=== PATIENT | female | born 1980 | race Asian ===

== ENCOUNTER → 2020-01-20 | Outpatient (CLI) | payer OTHER ==
[~2020-01-20] MED LIST: CIPRO500 MG PO; PYRIDIUM200 M1 PO; SPRINTEC 35 MCG1 TAB PO
== END ==
LOC: COL.RAD 07:30
DX: R10.11 Right upper quadrant pain (principal)

== ENCOUNTER → 2020-09-07 | Outpatient (CLI) | payer OTHER ==
[2020-09-07 15:43] LABS: ALBUMIN 4.6 gm/dL (3.5-5.0); BASO # 0.1 (0.0-0.2); BASO % 0.5 % (0.0-2.0); BILIRUBIN,TOTAL 0.3 mg/dL (0.0-1.0); CALCIUM 9.8 mg/dL (8.4-10.2); CREATININE, serum 0.56 (0.52-1.25); EOS # 0.8 (0.0-0.7); EOS % 7.5 % (0-4.0); GRAN # 6.5 (1.4-6.5); GRAN % 59.4 % (42.2-75.2); HEMOGLOBIN 12.1 g/dl (12.5-16.0); LYMPH # 2.7 (1.2-3.4); LYMPH % 24.8 % (20.0-51.0); MEAN CELL VOLUME 90 fl (80.0-100.0); MEAN CORPUSCULAR HEMOGLOBIN 30 pg (27.0-31.0); MEAN CORPUSCULAR HGB CONC 34 g/dl (33.0-37.0); MEAN PLATELET VOLUME 9.3 fl (7.4-10.4); MONO # 0.8 (0.1-0.6); MONO % 7.5 % (1.7-9.3); PLATELET COUNT 261 K/mm3 (130-400); POTASSIUM 3.8 mmol/L (3.4-5.0); RED BLOOD COUNT 4.02 M/mm3 (4.10-5.30); REDCELL DISTRIBUTION WIDTH-CV 12.9 % (11.5-14.5); TOTAL PROTEIN 8.7 gm/dL (6.4-8.2)
[2020-09-07 15:43] LABS: PROTHROMBIN TIME 11.2 SECONDS (9.7-12.8)
[2020-09-07 15:50] LABS: HEMATOCRIT 36.1 % (37.0-47.0)
[2020-09-07 21:39] LABS: HEPATITIS B SURFACE ANTIBODY <2.0 (())
== END ==
LOC: COL.LAB 14:08
PROVIDERS: Student in an Organized Health Care Education/Training Program
DX: O98.419 Viral hepatitis complicating pregnancy, unspecified trimester (principal); Z3A.00 Weeks of gestation of pregnancy not specified

== ENCOUNTER → 2020-09-14 | Outpatient (CLI) | payer OTHER | LOC: COL.RAD 10:13 | DX: O98.419 Viral hepatitis complicating pregnancy, unspecified trimester (principal) ==

== ENCOUNTER 2020-12-03 15:58 | Outpatient (CLI) | payer OTHER ==
[2020-12-21 07:52] LABS: HEPATITIS B CORE AB,TOTAL POSITIVE; HEPATITIS B IU 785; HEPATITIS B LOG IU 2.89
== END 2021-01-21 12:25 | disposition home or self-care (01) ==
LOC: COL.LAB 15:58
PROVIDERS: Student in an Organized Health Care Education/Training Program
DX: B19.10 Unspecified viral hepatitis B without hepatic coma (principal)

== ENCOUNTER → 2021-01-21 | Outpatient (CLI) | payer OTHER ==
[~2021-01-21] VITALS: Ht 152.4 cm; Wt 56.4 kg
[~2021-01-21] MED LIST changes: +IBU800 M1 PO; +PRENATAL TABLET PO
[2021-01-21 11:10] VITALS: BP 94/52; PULSE 87; TEMP 98.1
--- NOTE | 2021-01-21 11:29 | NUR ---
1110 PATIENT HERE FROM OFFICE FOR LABOR MONITORING. ASSESSMENT COMPLETED. VS WNL. EFM ON FHT 120 AND BABY IS VERY ACTIVE. NO CONTRACTIONS ON MONITOR OR FELT BY PATIENT.
[2021-01-21 12:16] VITALS: PULSE 86
--- NOTE | 2021-01-21 12:17 | NUR ---
1200 PATIENT STATES "I HAD A SPOT DOWN THERE A COUPLE WEEKS AGO, I THINK IT MAY BE HERPES BUT MY SAYS ITS A INGROWN HAIR." NO LESIONS OR SPOTS NOTED WITH SVE. SVE /3 DR GAVIRIA CALLED AND UPDATEED ON ALL ABOVE INFORMATION. ORDERS TO DISMISS PATIENT TO HOME. ALL DISCHARGE INSTRUCTION GIVENT O PATIENT WITH VERBAL UNDERSTANDING NOTED. DENIES NEEDS.
== END | disposition still patient (30) ==
LOC: LDRO 00:21
DX: Z34.93 Encounter for supervision of normal pregnancy, unspecified, third trimester (principal); Z3A.34 34 weeks gestation of pregnancy

== ENCOUNTER 2021-02-05 12:46 | Inpatient (IN) | payer OTHER ==
[2021-02-05] VITALS (36 sets, daily range): BP systolic 89–137; BP diastolic 52–71; PULSE 73–110; TEMP 97.3–98.4
[~2021-02-05] VITALS: Ht 152.4 cm; Wt 57.7 kg
[~2021-02-05 12:46] MED LIST changes: -IBU800 M1 PO; -PRENATAL TABLET PO
[2021-02-05] MEDS ORDERED: PRENATAL TABLET PO (13:07)
--- NOTE | 2021-02-05 15:01 | NUR ---
ADMIT NOTE: PT. AMBULATORY TO UNIT AND WAS TAKEN TO LDR4 WITH A L&D NURSE. PT. COMPLAINING OF SROM AROUND 1140 THIS MORNING. PT. CHANGED INTO GOWN AND RESTING ON BED. THIS RN TOOK OVER CARE OF PT. VITAL SIGNS WNL, AMNITRACE +, TOCO/EFM APPLIED AND MODERATE VARIABILITY NOTED BUT NO ACCELS OR DECELS NOTED. CTX NOTED ~10MIN. ASSESSMENTS COMPLETED. DR. GAVIRIA CALLED ABOUT POC. ONCE DECIDED TO DELIVER HERE DUE TO LPT INFANT,CONSENTS WERE SIGNED, IV WAS STARTED AND FLUIDS, PEN G, AND PITOCIN ALL STARTED. PT. STABLE AND HAS NO QUESTIONS. WILL CONTINUE TO MONITOR PT.
[2021-02-05 15:42] LABS: HEMOGLOBIN 12.2 g/dl (12.5-16.0); MEAN CELL VOLUME 93 fl (80.0-100.0); MEAN CORPUSCULAR HEMOGLOBIN 31 pg (27.0-31.0); MEAN CORPUSCULAR HGB CONC 34 g/dl (33.0-37.0); MEAN PLATELET VOLUME 10.1 fl (7.4-10.4); PLATELET COUNT 244 K/mm3 (130-400); RED BLOOD COUNT 3.91 M/mm3 (4.10-5.30); REDCELL DISTRIBUTION WIDTH-CV 13.1 % (11.5-14.5)
[2021-02-05 15:43] LABS: HEMATOCRIT 36.3 % (37.0-47.0)
[2021-02-05 16:29] LABS: EOSINOPHIL 14 % (0-4); LYMPHOCYTE 28 % (20.0-51.0); NEUTROPHILS 49 % (42.0-75.2)
[2021-02-05 16:31] LABS: PLATELET ESTIMATE NORMAL (NORMAL)
--- NOTE | 2021-02-05 17:07 | NUR ---
EPIDURAL NOTE: AMAN GRULLON CALLED FOR EPIDURAL PLACEMENT. 1640: AMAN GRULLON AT FOR PLACEMENT 1642: TO COMPLETED PT. INSTRUCTED ON HOW TO SIT DURING PLACEMENT 1645: SINGLE SHOT PT. TOLERATED PROCEDURE WELL. NO COMPLAINTS WILL CONTINUE TO MONITOR PT.
--- NOTE | 2021-02-05 18:27 | NUR ---
RELINQUISHED CARE OF STABLE, UNDELIVERED PT. AT THIS TIME TO ESTUARDO [facility].
--- NOTE | 2021-02-05 22:20 | NUR ---
2220: AT BEDSIDE, PT REQUESTING ASSISTANCE AFTER 2+ HOURS OF PUSHING. EDUCATES ON USE OF VACUUM EXTRACTION AND PT AGREEABLE TO PLAN OF CARE. PT AND PREPARING FOR DELIVERY. 2245: DELIVERY OF VIABLE MALE PER . MONA JONES RN ASSUMES CARE OF PREMATURE AND INFANT IS PLACED ON WARMER. 2247: SPONTANEOUS DELIVERY OF PLACENTA. BEGINS REPAIR OF 2ND DEGREE LACERATION. PITOCIN STARTED AT 333ML/HR PER PROTOCOL. VITAL SINGS REMAIN STABLE THROUGHOUT DELIVERY. MODERATE CLOT WITH FIRST FUNDAL RUB BY . LOCHIA WNL FOLLOWING THIS EPISODE. WILL CONTINUE WITH FUNDAL CHECKS AND RECOVERY PER PROTOCOL.
[2021-02-06] VITALS (9 sets, daily range): BP systolic 100–122; BP diastolic 50–64; PULSE 66–91; TEMP 97.6–98.3
--- NOTE | 2021-02-06 02:19 | NUR ---
PT REPORTS FEELING FULL SENSATION AND STRENGTH BACK IN BLE, ASSISTED TO SIDE OF BED AND ALLOWED FEET TO DANGLE. AMBULATORY TO RESTROOM WITH STRONG STEADY GAIT. LOCHIA WNL, NO CLOTS. PERICARE PROVIDED, CLEAN GOWN AND UNDERWEAR/PAD ON. PAIN CONTROLLED AT THIS TIME. PT ASSISTED TO ROOM #219 WITH FOB. BABY REMAINS IN NURSERY AT THIS TIME. ORIENTED TO NEW ROOM AND POC. DENIES FURTHER QUESTIONS OR CONCERNS.
--- NOTE | 2021-02-06 03:48 | NUR ---
PT REFUSING PRN PAIN CONTROL AT THIS TIME, STATES SHE "DOES NOT TAKE MEDICINE OFTEN," AND HER "PAIN IS VERY MANAGEABLE," PT ALSO STATES SHE DOES NOT LIKE SWALLOWING MEDICINE OR PILLS. EDUCATED TO PLEASE NOTIFY THIS NURSE IF HER PAIN BECOMES LESS MANAGEABLE, WE HAVE OTHER FORMS OF PAIN CONTROL THAN ORAL PILLS. PT REASSURES THIS RN SHE WILL LET STAFF KNOW IF SHE CHANGES HER MIND.
--- NOTE | 2021-02-06 18:00 | NUR ---
1530 PT STATES SHE TOOK OTHER HALF OF PAIN PILL. THIS RN UNAWARE PT HAD HALF OF PAIN PILL FROM 0615 MOTRIN 800 MG. PT INSTRUCTED TO TAKE WHOLE DOSE OR CAN HAVE ORDER CHANGED TO LESSER DOSE. NOTE MADE ON EMAR. DR. TAM AWARE OF HALF DOSE TAKEN. UPDATE DR. TAM IF PT DESIRES SMALLER DOSE OF MOTRIN.
[2021-02-07 08:00] VITALS: BP 111/50; PULSE 68; TEMP 98
[2021-02-07] MEDS ORDERED: IBU800 M1 PO (09:31)
== END 2021-02-07 16:15 | disposition home or self-care (01) | DRG 806 ==
LOC: LDRO 12:46 → LDR 13:00 → EDSTATUS 13:42 → OB 02-06 02:19
PROVIDERS: ADMIT Obstetrics & Gynecology
PROC: 10D07Z6 Extraction of Products of Conception, Vacuum, Via Natural or Artificial Opening (ICD-10-PCS; principal; 2021-02-05)
PROC: 0KQM0ZZ Repair Perineum Muscle, Open Approach (ICD-10-PCS; 2021-02-05)
PROC: 10907ZC Drainage of Amniotic Fluid, Therapeutic from Products of Conception, Via Natural or Artificial Opening (ICD-10-PCS; 2021-02-05)
DX: O75.81 Maternal exhaustion complicating labor and delivery (principal); O98.42 Viral hepatitis complicating childbirth; Z37.0 Single live birth; B19.10 Unspecified viral hepatitis B without hepatic coma; Z3A.35 35 weeks gestation of pregnancy; O70.1 Second degree perineal laceration during delivery
CPT/HCPCS: J2540; J2590; J2795; J7120